=== PATIENT | male | born 1990 | race Caucasian/White ===

== ENCOUNTER 2017-07-03 12:18 | Emergency (ER) | payer SELFPAY ==
[~2017-07-03] VITALS: Ht 182.9 cm; Wt 77.3 kg
[~2017-07-03 12:18] MED LIST: LISI-360 PO
[2017-07-03 12:20] VITALS: BP 234/142; PULSE 106; RESP 12; TEMP 98; O2SAT 100
[2017-07-03 15:50] VITALS: BP 220/145; PULSE 92; RESP 16; O2SAT 100
--- NOTE | 2017-07-03 16:39 | PD ---
HPI Chief Complaint: Musculoskeletal Complaint Time Seen by Provider: 15:42 Travel History International Travel<30 days: No Contact w/Intl Traveler<30days: No Traveled to known affect area: No History of Present Illness HPI This is a 27-year-old male who presents for evaluation for right-sided lower rib cage pain. He reports for the past 4-5 days he has had cough and congestion. The cough is productive with clear sputum. He has been having associated right lower rib cage pain which is reproduced with coughing, movement , palpation. Denies shortness of breath, fevers or chills, sore throat, abdominal pain, nausea or vomiting. He has no other complaints at this time. PFSH Past Medical History Cancer: No Cardiovascular Problems: No Diabetes: No Diminished Hearing: No Endocrine: No Genitourinary: Yes (R HYDRONEPHROSIS D/T R URETERAL BLOCKAGE) Hepatitis: No Hiatal Hernia: No Immune Disorder: No Musculoskeletal: No Neurologic: No Psychiatric: No Reproductive: No Respiratory: No Immunizations Current: Yes Thyroid Disease: No Past Surgical History AICD: No Genitourinary Surgery: Yes (STENT) Joint Replacement: No Pacemaker: No Other Surgery: Yes Social History Alcohol Use: No Tobacco Use: No Substance Use: No Allergies-Medications (Allergen,Severity, Reaction): Coded Allergies: No Known Allergies (Verified , 01/24/16) Reported Meds & Prescriptions Reported Meds & Active Scripts Active Tessalon Perles (Benzonatate) 100 Mg Cap 200 Mg PO TID PRN Lisinopril 10 Mg Tab 10 Mg PO DAILY Lisinopril 10 mg (Lisinopril) 10 Mg Tab 1 Tab PO DAILY 30 Days Review of Systems Except as stated in HPI: all other systems reviewed are Neg Physical Exam Narrative GENERAL: Well-developed well-nourished male in no acute distress SKIN: Warm and dry. HEAD: Atraumatic. Normocephalic. EYES: Pupils equal and round. No scleral icterus. No injection or drainage. ENT: No nasal bleeding or discharge. Mucous membranes pink and moist. NECK: Trachea midline. No JVD. CARDIOVASCULAR: Regular rate and rhythm. No murmur appreciated. RESPIRATORY: No accessory muscle use. Clear to auscultation. Breath sounds equal bilaterally. GASTROINTESTINAL: Abdomen soft, non-tender, nondistended. Hepatic and splenic margins not palpable. MUSCULOSKELETAL: No obvious deformities. No clubbing. No cyanosis. No edema. Reproducible tenderness to palpation just inferior and medial to the right nipple along the rib cage. NEUROLOGICAL: Awake and alert. No obvious cranial nerve deficits. Motor grossly within normal limits. Normal speech. PSYCHIATRIC: Appropriate mood and affect; insight and judgment normal. Data Data Last Documented VS Vital Signs Date Time Temp Pulse Resp B/P (MAP) Pulse Ox O2 Delivery O2 Flow Rate FiO2 07/03/17 20:03 71 20 139/85 (103) 98 07/03/17 19:22 Room Air 07/03/17 12:20 98.0 Orders Orders Complete Blood Count With Diff (07/03/17 16:34) Comprehensive Metabolic Panel (07/03/17 16:34) Lipase (07/03/17 16:34) Iv Access Insert/Monitor (07/03/17 16:34) Ecg Monitoring (07/03/17 16:34) Chest, Single Ap (07/03/17 16:34) Labetalol Inj (Trandate Inj) (07/03/17 16:45) Clonidine (Catapres) (07/03/17 17:15) Acetaminophen (Tylenol) (07/03/17 19:00) Potassium Chloride (Kcl) (07/03/17 19:30) Ed Discharge Order (07/03/17 19:37) Labs Laboratory Tests Test 07/03/17 18:15 White Blood Count 6.8 TH/MM3 Red Blood Count 4.93 MIL/MM3 Hemoglobin 14.4 GM/DL Hematocrit 41.7 % Mean Corpuscular Volume 84.5 FL Mean Corpuscular Hemoglobin 29.3 PG Mean Corpuscular Hemoglobin Concent 34.6 % Red Cell Distribution Width 13.9 % Platelet Count 225 TH/MM3 Mean Platelet Volume 8.6 FL Neutrophils (%) (Auto) 59.8 % Lymphocytes (%) (Auto) 27.3 % Monocytes (%) (Auto) 7.5 % Eosinophils (%) (Auto) 4.8 % Basophils (%) (Auto) 0.6 % Neutrophils # (Auto) 4.1 TH/MM3 Lymphocytes # (Auto) 1.9 TH/MM3 Monocytes # (Auto) 0.5 TH/MM3 Eosinophils # (Auto) 0.3 TH/MM3 Basophils # (Auto) 0.0 TH/MM3 CBC Comment DIFF FINAL Differential Comment Blood Urea Nitrogen 10 MG/DL Creatinine 1.13 MG/DL Random Glucose 77 MG/DL Total Protein 7.6 GM/DL Albumin 3.8 GM/DL Calcium Level 8.4 MG/DL Alkaline Phosphatase 31 U/L Aspartate Amino Transf (AST/SGOT) 22 U/L Alanine Aminotransferase (ALT/SGPT) 19 U/L Total Bilirubin 0.4 MG/DL Sodium Level 139 MEQ/L Potassium Level 3.2 MEQ/L Chloride Level 102 MEQ/L Carbon Dioxide Level 30.1 MEQ/L Anion Gap 7 MEQ/L Estimat Glomerular Filtration Rate 78 ML/MIN Lipase 205 U/L [facility] Medical Decision Making Medical Screen Exam Complete: Yes Emergency Medical Condition: Yes Medical Record Reviewed: Yes Differential Diagnosis Costochondritis, pneumonia, pneumothorax, bronchitis, intercostal muscle strain Narrative Course The patient's pain appears musculoskeletal. Is reproduced with coughing, palpation, and the anterior right lower rib cage. He has noted however to be markedly hypertensive. He has a history of hypertension but never checks his blood pressure and has no primary care physician. In the past he was on lisinopril but he ran out several months ago. Plan is for basic lab work, chest x-ray, EKG. He'll be given labetalol. The patient's blood pressure improved but was still elevated. He was given an additional dose of clonidine and his blood pressure improved to 155/100. His CBC is unremarkable. His chest x-ray is normal with no evidence pneumonia. The patient will be discharged with a refill of his lisinopril 10 mg daily. He understands that this likely will not be definitive treatment for his hypertension and most likely he will require additional medication for his hypertension. He understands and will follow up with a primary care physician. He is stable for discharge. Diagnosis Primary Impression: Hypertension Additional Impression: Chest wall pain Additional Instructions: Medication as prescribed. Monitor your blood pressure on a regular basis and follow up closely with a primary care physician for continuation of your hypertensive treatment. Take Tylenol or Motrin for pain. Return for any emergent medical conditions. Med/Other Pt SpecificInfo: Prescription(s) given Scripts Benzonatate (Tessalon Perles) 100 Mg Cap 200 MG PO TID Y for COUGH, #20 CAP 0 Refills Prov: Sarika Cortes 07/03/17 Lisinopril (Lisinopril) 10 Mg Tab 10 MG PO DAILY, #30 TAB 0 Refills Prov: Palma Pappas DO 07/03/17 Disposition: 01 DISCHARGE HOME Condition: Stable Francis Cedeno Jul 03, 2017 16:39
[2017-07-03] MEDS ORDERED: LABETALOL HCL 100 MG/20 ML VIAL IV PUSH ONE (16:45)
[2017-07-03 16:54] VITALS: BP 183/132; PULSE 82; RESP 16; O2SAT 99
[2017-07-03] MEDS ORDERED: cloNIDine HCL 0.2 MG TAB PO ONE (17:15)
--- NOTE | 2017-07-03 17:53 | RADRPT ---
EXAM DATE/TIME: 07/03/2017 16:51 [facility] COMPARISON: CHEST SINGLE AP, January 24, 2016, 20:20. INDICATIONS : Rib pain. MEDICAL HISTORY : None. SURGICAL HISTORY : None. ENCOUNTER: Initial ACUITY: 4 - 6 days PAIN SCORE: 3/10 LOCATION: Right Anterior rib pain. FINDINGS: A single view of the chest demonstrates the lungs to be symmetrically aerated without evidence of mas s, infiltrate or effusion. The cardiomediastinal contours are unremarkable. Osseous structures are intact. CONCLUSION: 1. No acute cardiopulmonary disease. Specifically, no evidence for displaced rib fractures. Logan Lawson MD on July 03, 2017 at 17:50 Board Certified Radiologist. This report was verified electronically.
[2017-07-03 18:42] LABS: AUTOMATED NEUTROPHIL # 4.1 TH/MM3 (1.8-7.7); BASOPHIL % 0.6 % (0.0-2.0); EOSINOPHIL # 0.3 TH/MM3 (0-0.4); EOSINOPHIL % 4.8 % (0.0-4.0); HEMATOCRIT 41.7 % (39.0-51.0); HEMOGLOBIN 14.4 GM/DL (13.0-17.0); LYMPH % 27.3 % (9.0-44.0); LYMPHOCYTE # 1.9 TH/MM3 (1.0-4.8); MEAN CELL VOLUME 84.5 FL (80.0-100.0); MEAN CORPUSCULAR HEMOGLOBIN 29.3 PG (27.0-34.0); MEAN CORPUSCULAR HGB CONC 34.6 % (32.0-36.0); MEAN PLATELET VOLUME 8.6 FL (7.0-11.0); MONO % 7.5 % (0.0-8.0); MONOCYTE # 0.5 TH/MM3 (0-0.9); NEUT % 59.8 % (16.0-70.0); PLATELET COUNT 225 TH/MM3 (150-450); RED BLOOD COUNT 4.93 MIL/MM3 (4.50-5.90); RED CELL DISTRIBUTION WIDTH 13.9 % (11.6-17.2); WHITE BLOOD COUNT 6.8 TH/MM3 (4.0-11.0)
[2017-07-03] MEDS ORDERED: LISI10TA3 PO (18:46)
[2017-07-03] MEDS ORDERED: ACETAMINOPHEN 325 MG TAB PO ONE (19:00)
[2017-07-03 19:12] LABS: ALBUMIN 3.8 GM/DL (3.4-5.0); AST (GOT) 22 U/L (15-37); BICARBONATE 30.1 MEQ/L (21.0-32.0); BLOOD UREA NITROGEN 10 MG/DL (7-18); CALCIUM 8.4 MG/DL (8.5-10.1); CHLORIDE 102 MEQ/L (98-107); CREATININE 1.13 MG/DL (0.60-1.30); GLOMERULAR FILTRATION RATE 78 ML/MIN (>89); GLUCOSE,RANDOM 77 MG/DL (74-106); LIPASE 205 U/L (73-393); SODIUM (NA) 139 MEQ/L (136-145)
[2017-07-03 19:13] LABS: ALT (GPT) 19 U/L (12-78)
[2017-07-03 19:15] LABS: ALKALINE PHOSPHATASE 31 U/L (45-117); TOTAL BILIRUBIN ADULT 0.4 MG/DL (0.2-1.0); TOTAL PROTEIN 7.6 GM/DL (6.4-8.2)
[2017-07-03 19:22] VITALS: BP 154/91; PULSE 82; RESP 20; O2SAT 99
[2017-07-03] MEDS ORDERED: POTASSIUM CHLORIDE 20 MEQ CONTROLLED RELEASE TAB PO ONE (19:30)
--- NOTE | 2017-07-03 19:37 | PD ---
Physical Exam Narrative I, Dr. Pappas, have reviewed the advance practice practitioner's documentation and am in agreement, met with the patient face to face, made the diagnosis, and the medical decision making was done by me. *My assessment and Findings: Costochondritis vs. musculoskeletal pain vs. pneumonia 27yo M with right rib pain for a few days that is worst with movement and cough. Seems very musculoskeletal. Pt has history of HTN and not taking his med. BP was initially 234/142 and given labetalol and clonidine. BP is now 154 /94. Labs reviewed, no leukocytosis. Creatinine 1.13. K: 3.2, replaced orally. CXR negative. Pt given acetaminophen with improvement of pain. Denies any family history of sudden cardiac . Instructed pt to follow up with PMD for blood pressure control. Data Data Last Documented VS Vital Signs Date Time Temp Pulse Resp B/P (MAP) Pulse Ox O2 Delivery O2 Flow Rate FiO2 07/03/17 19:22 82 20 154/91 (112) 99 Room Air 07/03/17 12:20 98.0 Orders Orders Complete Blood Count With Diff (07/03/17 16:34) Comprehensive Metabolic Panel (07/03/17 16:34) Lipase (07/03/17 16:34) Iv Access Insert/Monitor (07/03/17 16:34) Ecg Monitoring (07/03/17 16:34) Electrocardiogram (07/03/17 16:34) Chest, Single Ap (07/03/17 16:34) Labetalol Inj (Trandate Inj) (07/03/17 16:45) Clonidine (Catapres) (07/03/17 17:15) Acetaminophen (Tylenol) (07/03/17 19:00) Potassium Chloride (Kcl) (07/03/17 19:30) Labs Laboratory Tests Test 07/03/17 18:15 White Blood Count 6.8 TH/MM3 Red Blood Count 4.93 MIL/MM3 Hemoglobin 14.4 GM/DL Hematocrit 41.7 % Mean Corpuscular Volume 84.5 FL Mean Corpuscular Hemoglobin 29.3 PG Mean Corpuscular Hemoglobin Concent 34.6 % Red Cell Distribution Width 13.9 % Platelet Count 225 TH/MM3 Mean Platelet Volume 8.6 FL Neutrophils (%) (Auto) 59.8 % Lymphocytes (%) (Auto) 27.3 % Monocytes (%) (Auto) 7.5 % Eosinophils (%) (Auto) 4.8 % Basophils (%) (Auto) 0.6 % Neutrophils # (Auto) 4.1 TH/MM3 Lymphocytes # (Auto) 1.9 TH/MM3 Monocytes # (Auto) 0.5 TH/MM3 Eosinophils # (Auto) 0.3 TH/MM3 Basophils # (Auto) 0.0 TH/MM3 CBC Comment DIFF FINAL Differential Comment Blood Urea Nitrogen 10 MG/DL Creatinine 1.13 MG/DL Random Glucose 77 MG/DL Total Protein 7.6 GM/DL Albumin 3.8 GM/DL Calcium Level 8.4 MG/DL Alkaline Phosphatase 31 U/L Aspartate Amino Transf (AST/SGOT) 22 U/L Alanine Aminotransferase (ALT/SGPT) 19 U/L Total Bilirubin 0.4 MG/DL Sodium Level 139 MEQ/L Potassium Level 3.2 MEQ/L Chloride Level 102 MEQ/L Carbon Dioxide Level 30.1 MEQ/L Anion Gap 7 MEQ/L Estimat Glomerular Filtration Rate 78 ML/MIN Lipase 205 U/L [facility] Supervised Visit with ANALILIA: Yes Diagnosis Primary Impression: Hypertension Qualified Codes: I10 - Essential (primary) hypertension Additional Impression: Chest wall pain Patient Instructions: General Instructions Departure Forms: Tests/Procedures Additional Instruction: Medication as prescribed. Monitor your blood pressure on a regular basis and follow up closely with a primary care physician for continuation of your hypertensive treatment. Take Tylenol or Motrin for pain. Return for any emergent medical conditions. Scripts Lisinopril (Lisinopril) 10 Mg Tab 10 MG PO DAILY, #30 TAB 0 Refills Prov: Palma Pappas 07/03/17 Disposition: 01 DISCHARGE HOME Condition: Stable PappasPalma DO Jul 03, 2017 19:37
[2017-07-03] MEDS ORDERED: BENZ100 PO (19:58)
[2017-07-03 20:03] VITALS: BP 139/85
== END 2017-07-03 20:04 | disposition home or self-care (01) ==
LOC: NEPD 12:18
DX: I10 Essential (primary) hypertension (principal); R07.81 Pleurodynia
CPT/HCPCS: 71045; 80053; 83690; 85025; 96374